=== PATIENT | female | born 1950 | race Caucasian/White ===

== ENCOUNTER → 2024-02-04 11:30 | Outpatient (REF) | payer OTHER, SELFPAY | LOC: DHCBC/DCA 11:30 | PROVIDERS: ATTENDING PHYSICIAN Internal Medicine Cardiovascular Disease; FAMILY PHYSICIAN Internal Medicine | DX: R06.00 Dyspnea, unspecified (principal); I48.0 Paroxysmal atrial fibrillation | CPT/HCPCS: 78452; 93017; A9500; J2785 ==

== ENCOUNTER 2024-11-09 14:14 | Emergency (ER) | payer OTHER, SELFPAY ==
[2024-11-09 14:16] VITALS: BP 135/77
[2024-11-09 14:42] LABS: % Basophils 0.7 % (0-2); % Immature Granulocytes 0.3 % (0-0.5); % Lymphocytes 27.3 % (20.5-51.1); % Monocytes 6.8 % (1.7-9.3); % Neutrophils 62.9 % (42.2-75.2); Absolute Basophils 0.1 10^3/uL (0-0.2); Absolute Eosinophils 0.2 10^3/uL (0-0.7); Absolute Monocytes 0.5 10^3/uL (0.1-0.6); Absolute Neutrophils 4.7 10^3/uL (1.4-6.5); Hematocrit 41.4 % (37.0-47.0); Hemoglobin 14.1 g/dL (12.0-16.0); Mean Corp Hgb Conc. 34.1 g/dL (33.0-37.0); Mean Corpuscular Hgb 29.7 pg (27.0-31.0); Mean Corpuscular Volume 87.3 fL (81.0-99.0); Mean Platelet Volume 10.4 fL (7.4-10.4); Nucleated Red Blood Cells % 0 %; Platelet Count 238 10^3/uL (130-400); Red Blood Cell Count 4.74 10^6/uL (4.20-5.40); Red Cell Dist. Width 13.3 % (11.5-14.5); White Blood Cell Count 7.4 10^3/uL (4.8-10.8)
[2024-11-09 14:57] LABS: ALT (SGPT) 14 U/L (0-35); AST (SGOT) 21 U/L (14-36); Albumin 4.4 g/dl (3.5-5.0); Alkaline Phosphatase 69 U/L (38-126); Blood Urea Nitrogen 16 mg/dl (7-17); Calcium 10.1 mg/dl (8.4-10.2); Carbon Dioxide 26 mmol/L (22-30); Chloride 103 mmol/L (98-107); Glucose 95 mg/dl (70-99); Potassium 4.4 mmol/L (3.5-5.1); Sodium 139 mmol/L (135-145); Total Bilirubin 0.7 mg/dl (0.2-1.3); Total Protein 7.3 g/dl (6.3-8.2); eGFR > 60.00
[2024-11-09 15:06] LABS: NT-proBNP 1460 pg/ml
[2024-11-09 15:29] LABS: TSH Reflex To Free T4 1.29 uIU/ml (0.47-4.68)
[2024-11-09 16:00] VITALS: BP 150/99
[2024-11-09 16:50] VITALS: BP 145/77
[2024-11-09 17:00] VITALS: BP 162/81
--- NOTE | 2024-11-09 17:29 | ED.GENMED ---
History of Present Illness
General
Chief Complaint: Heart Rate Problem
Source: patient and family
Time Seen by Provider: 11/09/24 15:57
History of Present Illness
History of Present Illness:
74-year-old female with past medical history of atrial fibrillation, hyperlipidemia, status post pacemaker placement due to sick sinus syndrome presenting to the emergency department after she was at her oral surgeon's office for a tooth extraction
when she was noted to go into a rapid A-fib, sent to the ER for further evaluation. Patient notes that she never had any symptoms during this time and ultimately did not even want to come to the emergency department but given recommendation decided
to come to the ER anyway. She maintains she is asymptomatic and it was noted that in triage patient was back in a paced rhythm at a normal rate. Patient states she had her pacemaker placed at [facility] but follows with Dr. Gillette for
cardiology more locally. Patient has no other symptoms and otherwise states she feels as if she is in her usual state of health
Past History
Past History
ED Past Medical History: Arrthythmia and Hypercholesterolemia
ED Past Surgical History: Cardiac, Gynecological and Orthopedic
Social History
Tobacco: Non-smoker
Alcohol: None
Drug: None
Personal:
Living: with family
Review of Systems
Review of Systems
All Other Systems: ROS reviewed and negative except as documented in HPI and ROS
Phy Exam
Physical Exam
Physical Exam:
GENERAL: Alert , in no apparent distress
EYE: conjunctiva clear
NECK: Supple
ENT: o/p clr, mmm.
CARDIAC: Regular rate and rhythm
LUNGS: Clear breath sounds bilaterally, no acute respiratory distress, no wheezes/rales/rhonchi
NEUROLOGICAL: Alert and oriented
SKIN: Warm and dry, skin intact.
MUSCULOSKELETAL: well perfused.
PSYCH: Normal and appropriate interaction.
Scores
Heart Failure Risk
Heart Failure Risk Score: Not Applicable
Heart Score for Chest Pain Patients
STEMI patient?: Not applicable
Withdrawal Assessment of Alcohol
Withdrawal Assessment Completed?: Not applicable
Course
Orders/Labs/Results
Orders:
Orders
11/09/24 14:16
Electrocardiogram (*1) Urgent
Reason for Study: Tachycardia
EKG- Treatment ONCE
11/09/24 14:33
Complete Blood Count/With Diff Urgent
Comprehensive Metabolic Panel Urgent
NT-proBNP Urgent
TSH Reflex To Free T4 Urgent
11/09/24 16:12
Interrogate Pacemaker- Treatment ONCE
11/09/24 14:33
11/09/24 14:33
Vital Signs
Initial and Last Documented VS:
Initial Vital Signs
Temp Pulse Resp BP Pulse Ox
98.2 F 61 18 135/77 96
11/09/24 14:16 11/09/24 14:16 11/09/24 14:16 11/09/24 14:16 11/09/24 14:16
Last Documented Vital Signs
Temp Pulse Resp BP Pulse Ox
98.2 F 60 19 162/81 98
11/09/24 14:16 11/09/24 17:15 11/09/24 17:15 11/09/24 17:00 11/09/24 17:15
MDM/Problems Addressed
Differential Diagnosis Includes:
Paroxysmal A-fib, other cardiac arrhythmia/dysrhythmia, electrolyte derangement, anxiety
MDM/Problems Addressed:
74-year-old female presenting to the emergency department for evaluation after she reportedly went into a paroxysmal atrial fibrillation episode while at her oral surgeon's office just prior to a tooth extraction. On arrival here patient appears to
be in a paced rhythm and normal rate. She is otherwise asymptomatic. Labs were initiated on arrival which were all reassuring. Will attempt to interrogate patient's [employer] pacemaker with anticipation that she will be safe for discharge home
and close outpatient follow-up in my
Chronic conditions affecting care: Arrhythmia
Acute Exacerbation and/or Progression of Chronic Illness: Arrhythmia
*Pulse Oximetry
Patient hypoxic: no
*EKG
Interpretation: normal
Heart Rate: 60
Rate: normal
Rhythm: sinus
Ischemia: no ischemia
*Finish Opener Interpretation
Rate: normal
Rhythm: sinus
*Critical Care Note
Total Time (30-74mins, 75-104mins- exclusive of procedures): Not Applicable
Patient Management
Discussion with other providers: Digital Data Analyst
Escalation/DeEscalation of care consider admission/obs:
Multiple attempts were made to transmit pacemaker report however they were unsuccessful. I did get to speak with patient's cardiology group, Dr. Henley, who states that patient's pacemaker is monitored by [facility] and recommends
speaking with her manufacturing production technician, Dr. Lee. While attempting to contact Dr. Lee patient quested to be discharged home and no longer wanted to wait in the emergency. She states that she will contact Dr. Lee tomorrow but would like to be
discharged home and does not wish to wait any further or make any further attempts to retransmit her pacemaker report. Patient was advised that if she was in a different or abnormal rhythm this could be potentially life-threatening and patient
expressed understanding. Ultimately patient was monitored in the ER for several hours and remained in a normal sinus rhythm and rate controlled so I do think it is reasonable for her to be discharged home but was agreeable to return precautions.
ED Attending Note
-
Portions of this chart may have been created with voice recognition software.� Occasional wrong word or��sound alike� substitutions may have occurred due to the inherent limitations of voice recognition software.
Discharge Plan
Departure
Patient Disposition: Home (Routine Discharge)
Date of Disposition: 11/09/24
Time of Disposition: 17:29
Patient with high blood pressure during this ER visit?: No
Discharge Problem:
Tachycardia
Instructions: Atrial Fibrillation (DC)
Interventions
Interventions:
*Risk Screen - Suicide Last Done: 11/09/24 14:16
*General Assessment Last Done: 11/09/24 14:16
*Neglect/Abuse Screening Last Done: 11/09/24 14:16
*ED- Fall Risk Assessment Last Done: 11/09/24 16:09
*ED COVID-19 Vaccine History Last Done: 11/09/24 14:16
*Nursing Disposition Last Done: 11/09/24 17:42
ED- Cardiac Assessment Last Done: 11/09/24 15:56
ED- Pulmonary Assessment Last Done: 11/09/24 15:56
Discharge Date and Time
Discharge Date/Time: 11/09/24 17:45
Print Language: DJIBOUTIAN
== END 2024-11-09 17:45 | disposition home or self-care (01) ==
LOC: EMR 14:14
PROVIDERS: Emergency Medicine; EMERGENCY PHYSICIAN Emergency Medicine
DX: R00.0 Tachycardia, unspecified (principal); I48.91 Unspecified atrial fibrillation; E78.00 Pure hypercholesterolemia, unspecified; Z95.0 Presence of cardiac pacemaker
CPT/HCPCS: 99284; 80053; 83880; 84443; 85025; 93005